=== PATIENT | male | born 1950 | race Caucasian/White ===

== ENCOUNTER 2021-08-04 10:04 | Day surgery (SDC) | payer MEDICARE, BC ==
[~2021-08-04 10:04] MED LIST: Lactated Ringers 1,000 ML IV SCH; Lidocaine 1%/Sod Bicarbonate in NS 8.4% 1 ML Syringe IDERM PRN; Sodium Chloride 0.9% 10 ML Syringe FLUSH PRN
--- NOTE | 2021-08-04 10:48 | PCM.PREANE ---
Preanesthetic Assessment - Procedure Proposed Procedure: Diag. EGD/ Diag. Colonoscopy - Anesthesia/Transfusion/Family Hx Anesthesia History: Prior Anesthesia Without Reaction Family History of Anesthesia Reaction: No Transfusion History: No Prior Transfusion(s) - Review of Systems General: No Symptoms Pulmonary: No Symptoms Cardiovascular: No Symptoms Gastrointestinal: No Symptoms Neurological: No Symptoms Other: Reports: Thyroid Problems (hypothyroid) - Physical Assessment NPO Status Date: 08/04/21 NPO Status Time: 05:00 Height: 1.75 m Weight: 89.6 kg ASA Class: 3 Mental Status: Alert & Oriented x3 Airway Class: Mallampati = 2 Dentition: Reports: Dentures Thyro-Mental Finger Breadths: 3 Mouth Opening Finger Breadths: 2 ROM/Head Extension: Full Lungs: Clear to Auscultation, Normal Respiratory Effort Cardiovascular: Regular Rate, Regular Rhythm - Allergies Allergies/Adverse Reactions: Allergies Allergy/AdvReac Type Severity Reaction Status Date / Time No Known Allergies Allergy Verified 08/03/21 19:29 - Blood Blood Available: No Product(s) Available: None - Anesthesia Plan Pre-Op Medication Ordered: None - Acknowledgements Anesthesia Type Planned: MAC Pt an Appropriate Candidate for the Planned Anesthesia: Yes Alternatives and Risks of Anesthesia Discussed w Pt/Guardian: Yes Pt/Guardian Understands and Agrees with Anesthesia Plan: Yes PreAnesthesia Questionnaire - Past Health History Medical/Surgical History: Denies Medical/Surgical History HEENT History: Reports: Impaired Vision, Other (See Below) Other HEENT History: upper and lower dentures Cardiovascular History: Reports: High Cholesterol, Hypertension Respiratory History: Reports: Asthma, COPD Other Respiratory History: acute bronchitis Gastrointestinal History: Reports: Diverticulosis, Other (See Below) Other Gastrointestinal History: melena Genitourinary History: Reports: None 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 Musculoskeletal History: Reports: Other (See Below) Other Musculoskeletal History: left shoulder pain Neurological History: Reports: None Psychiatric History: Reports: None Endocrine/Metabolic History: Reports: Hypothyroidism, Vitamin D Deficiency Other Endocrine/Metabolic History: vitamin d deficency Hematologic History: Reports: None Immunologic History: Reports: None Oncologic (Cancer) History: Reports: None, Prostate Dermatologic History: Reports: None - Infectious Disease History Infectious Disease History: Reports: None - Past Surgical History Head Surgeries/Procedures: Reports: None HEENT Surgical History: Reports: Cataract Surgery, Visual Cardiovascular Surgical History: Reports: None GI Surgical History: Reports: Colonoscopy Female Surgical History: Reports: None Male Surgical History: Reports: Other (See Below) Other Male Surgeries/Procedures: radiation seeds implant Endocrine Surgical History: Reports: None Neurological Surgical History: Reports: None Musculoskeletal Surgical History: Reports: None Oncologic Surgical History: Reports: None - SUBSTANCE USE Tobacco Use Status *Q: Former Tobacco User Tobacco Use Within Last Twelve Months: No Second Hand Smoke Exposure: No Days Per Week of Alcohol Use: 1 Number of Drinks Per Day: 0 Total Drinks Per Week: 0 Recreational Drug Use History: No - HOME MEDS Home Medications: Home Meds Levothyroxine 75 mcg PO DAILY 04/03/15 [History] Lisinopril 10 mg PO DAILY 04/03/15 [History] Pravastatin [Pravachol] 40 mg PO DAILY 04/03/15 [History] Aspirin [Children's Aspirin] 81 mg PO DAILY 02/14/18 [History] Fish Oil/DHA/EPA [Fish Oil 1,200 MG] 2,400 mg PO DAILY 02/14/18 [History] Niacinamide [Niacin] 500 mg PO DAILY 02/14/18 [History] flaxseed oiL [Flaxseed Oil] 1 tab PO DAILY 02/14/18 [History] Albuterol Sulfate [Albuterol Sulfate HFA] 2 puff INH Q4H 08/03/21 [History] Fluticasone/Vilanterol [Breo Ellipta 200-25 MCG Inhalation Kit] 1 puff INH DAILY 08/03/21 [History] - CURRENT (IN HOUSE) MEDS Current Meds: Current Medications Lactated Ringer's (Ringers, Lactated) 1,000 mls @ 125 mls/hr IV ASDIRECTED NILO Stop: 08/04/21 23:00 Lidocaine/Sodium Bicarbonate (Lidocaine 1%/Sod Bicarbonate In Ns 8.4% 1 Ml Syringe) 0.25 ml IDERM ONETIME PRN PRN Reason: Prior to IV Start Stop: 08/04/21 18:00 Sodium Chloride (Sodium Chloride 0.9% 10 Ml Syringe) 10 ml FLUSH ASDIRECTED PRN PRN Reason: Keep Vein Open Stop: 08/04/21 18:00
[2021-08-04] MEDS ORDERED: Propofol 200 MG/20 ML SDV ONE (10:55)
[2021-08-04] MEDS ORDERED: fentaNYL 100 MCG/2 ML SDV ONE (10:56)
[2021-08-04] MEDS ORDERED: Midazolam 1 MG/ML 2 ML SDV ONE (11:08)
[2021-08-04] MEDS ORDERED: Lactated Ringers 1,000 ML ONE (12:13)
--- NOTE | 2021-08-04 12:47 | PCM.PRNOTE ---
- Free Text/Narrative Note: Date: 08/04/2021 Procedure: diagnostic esophagogastroduodenoscopy and colonoscopy Indication: rectal bleeding, melena History: known diverticulosis with otherwise normal colonoscopy in 2018, now with several weeks of melena Endoscopist: Scott Hamilton MD Findings: gross inflammatory changes in first portion of duodenum. Prep was good. Striking segmental inflammation of the sigmoid colon with hemorrhagic mucosa. Small rectal polyp. Detailed Report: The patient was taken to the endoscopy suite and placed in left lateral decubitus position. Timeout was performed and monitored anesthesia care was initiated. A bite-block was placed and the endoscope was inserted in the mouth. This was advanced all the way to the distal duodenum with ease. There appeared to be some minor gross inflammatory changes in the proximal duodenum. Biopsies were obtained with cold forceps. The stomach appeared normal without evidence of inflammation or ulceration. Sample biopsies were obtained from the gastric antrum and body. On retroflexion, the lower esophageal sphincter appeared intermittently hypotonic but otherwise no significant hiatal hernia was appreciated. The scope was withdrawn into the distal esophagus. The Z-line appeared normal. A sample mucosal biopsy of distal esophageal tissue was obtained just proximal to the Z-line. Air was suctioned from the stomach and the scope was withdrawn. The remainder of the esophagus appeared normal. Next, attention was turned to colonoscopy. On inspection of the anus, there is a single right posterior lateral external hemorrhoid. Digital rectal exam was unremarkable. The colonoscope was inserted and advanced all the way to the cecum. The appendiceal orifice was visualized. Prep was good. The scope was slowly withdrawn and mucosal surfaces carefully inspected. At 35 cm from the anal verge, an abrupt transition in mucosa was noted, with gross inflammatory change and hemorrhagic mucosa affecting a segment of the sigmoid, with sparing of the rectum. Diverticular disease was noted throughout the entire colon. A biopsy of inflamed tissue was obtained with cold forceps. A tiny subcentimeter polyp was identified in the rectum and this was removed entirely with cold forceps. On retroflexion within the rectum, no significant hemorrhoidal disease or other pathology was appreciated. Air was suctioned from the distal colon and rectum prior to withdrawal of the scope. The patient tolerated the procedure well.
--- NOTE | 2021-08-04 12:51 | PCM48HPAN ---
Post Anesthesia Note - EVALUATION WITHIN 48HRS OF ANESTHETIC Vital Signs in Normal Range: Yes Patient Participated in Evaluation: Yes Respiratory Function Stable: Yes Airway Patent: Yes Cardiovascular Function Stable: Yes Hydration Status Stable: Yes Pain Control Satisfactory: Yes Nausea and Vomiting Control Satisfactory: Yes Mental Status Recovered: Yes Vital Signs: Last Vital Signs Temp 97.4 08/04/21 1245 Pulse 71 08/04/21 1245 Resp 10 08/04/21 1245 BP 101/64 08/04/21 1245 Pulse Ox 98% 08/04/21 1245
[2021-08-04 14:06] VITALS: BP 108/75; PULSE 68
== END 2021-08-04 13:42 | disposition home or self-care (01) ==
LOC: JD.SDS 10:04
PROVIDERS: ATTEND Surgery
DX: D12.8 Benign neoplasm of rectum (principal); K57.31 Diverticulosis of large intestine without perforation or abscess with bleeding; K29.50 Unspecified chronic gastritis without bleeding; K64.4 Residual hemorrhoidal skin tags; K31.89 Other diseases of stomach and duodenum; K29.80 Duodenitis without bleeding; K52.9 Noninfective gastroenteritis and colitis, unspecified; I10 Essential (primary) hypertension; J44.9 Chronic obstructive pulmonary disease, unspecified; E78.5 Hyperlipidemia, unspecified; E03.9 Hypothyroidism, unspecified; E55.9 Vitamin D deficiency, unspecified; Z79.82 Long term (current) use of aspirin; Z79.899 Other long term (current) drug therapy; Z79.890 Hormone replacement therapy; Z98.890 Other specified postprocedural states; Z87.891 Personal history of nicotine dependence
CPT/HCPCS: 43239; 45380; 88305; 88342; J2250; J2704; J3010; J7120; 00813; 99100